=== PATIENT | male | born 1955 | race Caucasian/White ===

== ENCOUNTER 2018-02-27 10:37 | Emergency (ER) | payer MEDICAID ==
--- NOTE | 2018-02-27 11:04 | Emergency Department Record ---
History of Present Illness - General Chief complaint: ENT Stated complaint: SINUS INFECTION Time Seen by Provider: 02/27/18 10:56 Source: Patient, RN notes reviewed Mode of Arrival: Ambulatory - History of Present Illness Initial comments: sinus congestin and recently finished cleocin for a tooth infection on the right side and now he is having congestion of the left side of infection. Onset/Timin -: Week(s) Location: Other Improves with: None Worsens with: None Associated Symptoms: Other - Related Data Previous Rx's Medication Instructions Recorded Doxycycline Monohydrate 100 mg PO BID #20 capsule 02/27/18 Allergies Allergy/AdvReac Type Severity Reaction Status Date / Time Penicillins Allergy Severe PT UNSURE Verified 02/27/18 10:41 OF REACTION cephalexin monohydrate AdvReac Intermediate rash Verified 02/27/18 10:41 [From [email or web address]] Travel Screening - Travel/Exposure Within Last 30 Days Have you traveled within the last 30 days?: No - Travel/Exposure Within Last Year Have you traveled outside the [place] in the last year?: No - Additonal Travel Details Have you been exposed to anyone with a communicable illness?: No - Travel Symptoms Symptom Screening: None Review of Systems Reviewed: No additional complaints except as noted below Constitutional: Reports: As per HPI. Denies: Chills, Fever, Malaise, Night sweats, Weakness, Weight change Eyes: Reports: As per HPI. Denies: Eye discharge, Eye pain, Photophobia, Vision change ENT: Reports: As per HPI, Congestion. Denies: Dental pain, Ear pain, Epistaxis , Hearing loss, Throat pain Respiratory: Reports: As per HPI. Denies: Cough, Dyspnea, Hemoptysis, Stridor, Wheezes Cardiovascular: Reports: As per HPI. Denies: Arrhythmia, Chest pain, Dyspnea on exertion, Edema, Murmurs, Orthopnea, Palpitations, Paroxysmal nocturnal dyspnea, Rheumatic Fever, Syncope Endocrine: Reports: As per HPI. Denies: Fatigue, Heat or cold intolerance, Polydipsia, Polyuria Gastrointestinal: Reports: As per HPI. Denies: Abdominal pain, Constipation, Diarrhea, Hematemesis, Hematochezia, Melena, Nausea, Vomiting Genitourinary: Reports: As per HPI. Denies: Dysuria, Frequency, Hematuria, Incontinence, Retention, Testicular pain, Testicular mass, Urgency Musculoskeletal: Reports: As per HPI. Denies: Arthralgia, Back pain, Gout, Joint swelling, Myalgia, Neck pain Skin: Reports: As per HPI. Denies: Bruising, Change in color, Change in hair/ nails, Lesions, Pruritus, Rash Neurological: Reports: As per HPI. Denies: Abnormal gait, Confusion, Headache, Numbness, Paresthesias, Seizure, Tingling, Tremors, Vertigo, Weakness Psychiatric: Reports: As per HPI. Denies: Anxiety, Auditory hallucinations, Depression, Homicidal thoughts, Suicidal thoughts, Visual hallucinations Hematological/Lymphatic: Reports: As per HPI. Denies: Anemia, Blood Clots, Easy bleeding, Easy bruising, Swollen glands Past Medical History - SOCIAL HISTORY Smoking Status: Never smoker Alcohol Use: None Drug Use: Rare Drug Use Detail:: Marijuana - RESPIRATORY Hx Respiratory Disorders: No - CARDIOVASCULAR Hx Cardio Disorders: No - NEURO Hx Neuro Disorders: No - GI Hx GI Disorders: No - Hx Genitourinary Disorders: No - ENDOCRINE Hx Endocrine Disorders: No - MUSCULOSKELETAL Hx Musculoskeletal Disorders: No - PSYCH Hx Psych Problems: No - HEMATOLOGY/ONCOLOGY Hx Hematology/Oncology Disorders: No Family Medical History Any Significant Family History?: Yes Hx Cancer: Father, Mother, Brother/Sister Physical Exam - General General Appearance: Alert, Oriented x3, Cooperative, No acute distress - Head Head exam: Normal inspection - Eye Eye exam: Normal appearance, PERRL Pupils: Normal accommodation - ENT ENT exam: Normal exam, Mucous membranes moist, Normal external ear exam, Normal orophraynx, TM's normal bilaterally Ear exam: Normal external inspection. negative: External canal tenderness Nasal Exam: Normal inspection. negative: Discharge, Sinus tenderness Mouth exam: Normal external inspection, Tongue normal Teeth exam: Normal inspection. negative: Dental caries Throat exam: Normal inspection. negative: Tonsillar erythema, Tonsillar exudate - Neck Neck exam: Normal inspection, Full ROM. negative: Tenderness - Respiratory Respiratory exam: Normal lung sounds bilaterally. negative: Respiratory distress - Cardiovascular Cardiovascular Exam: Regular rate, Normal rhythm, Normal heart sounds - GI/Abdominal GI/Abdominal exam: Soft, Normal bowel sounds. negative: Tenderness - Rectal Rectal exam: Deferred - exam: Deferred - Extremities Extremities exam: Normal inspection, Full ROM, Normal capillary refill. negative: Tenderness - Back Back exam: Reports: Normal inspection, Full ROM. Denies: Muscle spasm, Rash noted, Tenderness - Neurological Neurological exam: Alert, Normal gait, Oriented X3, Reflexes normal - Psychiatric Psychiatric exam: Normal affect, Normal mood - Skin Skin exam: Dry, Intact, Normal color, Warm Course Vital Signs 02/27/18 10:43 Temperature 98.1 F Pulse Rate 86 Respiratory 20 Rate Blood Pressure 157/95 Pulse Ox 98 Disposition Clinical Impression: Sinusitis Qualifiers: Sinusitis location: unspecified location Chronicity: acute Recurrence: non- recurrent Qualified Code(s): J01.90 - Acute sinusitis, unspecified Disposition: Home, Self-Care Condition: (1) Good Instructions: Sinusitis (ED) Additional Instructions: follow up with Dr Warren in 2-3 days Prescriptions: Doxycycline Monohydrate 100 mg PO BID #20 capsule Time of Disposition: 11:08 Quality - Quality Measures Quality Measures: N/A - Blood Pressure Screening Does Patient Have Any of the Following: No Blood Pressure Classification: Hypertensive Reading Systolic Measurement: 157 Diastolic Measurement: 95 Screening for High Blood Pressure: < First Hypertensive BP, F/U Documented > [ G8950] First Hypertensive Follow-up Interventions: Referral to alternative/primary care provider.
== END 2018-02-27 11:20 | disposition home or self-care (01) ==
LOC: ER 10:37
DX: J01.90 Acute sinusitis, unspecified (principal)
CPT/HCPCS: 99282

== ENCOUNTER 2019-03-17 11:32 | Emergency (ER) | payer MEDICAID ==
[2019-03-17] MEDS ORDERED: Diph,Pert(Acell),Tet Vac 0.5 ML SYR IM ONE (11:52)
[2019-03-17] MEDS ORDERED: DOXYCYCLINE HYCLATE 100 MG CAPSULE PO ONE (11:56)
--- NOTE | 2019-03-17 12:00 | Emergency Department Record ---
History of Present Illness - General Chief Complaint: Animal Bite Stated Complaint: DOG BITE LEFT HAND Time Seen by Provider: 03/17/19 11:44 Source: Patient Mode of Arrival: Ambulatory Limitations: No limitations - History of Present Illness Initial Comments: The patient is here due to being bit over the dorsal L hand by a stray dog last night. The patient states he was driving in [place] and got out of his truck and a white dog ran up and bit him. He thinks it was a Pit bull but is not sure what street he was on and if the dog had a collar on. He then went home and presented to the for treatment. Due to his low but not zero risk of rabies he was sent over to the ER for treatment. He did have a Doxycycline script called in but does need a Td shot. MD Complaint: Animal bite Onset/Timin -: Days(s) Animal: Dog Description: Unknown animal Mechanism: Bite Pain Description: Sharp Severity scale (1-10): 4 Context: Unprovoked Associated Symptoms: Bleeding Treatments Prior to Arrival: Wound dressing(s) - Related Data Patient Tetanus UTD (within 5 yrs): No Allergies Allergy/AdvReac Type Severity Reaction Status Date / Time Penicillins Allergy Severe PT UNSURE Verified 03/17/19 11:39 OF REACTION cephalexin monohydrate AdvReac Intermediate rash Verified 03/17/19 11:39 [From [employer]] Travel Screening - Travel/Exposure Within Last 30 Days Have you traveled within the last 30 days?: No Review of Systems Constitutional: Denies: Chills, Fever Past Medical History - SOCIAL HISTORY Smoking Status: Never smoker Alcohol Use: None Drug Use: None - RESPIRATORY Hx Respiratory Disorders: No - CARDIOVASCULAR Hx Cardio Disorders: No - NEURO Hx Neuro Disorders: No - GI Hx GI Disorders: No - Hx Genitourinary Disorders: No - ENDOCRINE Hx Endocrine Disorders: No - MUSCULOSKELETAL Hx Musculoskeletal Disorders: No - PSYCH Hx Psych Problems: No - HEMATOLOGY/ONCOLOGY Hx Hematology/Oncology Disorders: No Family Medical History Any Significant Family History?: Yes Hx Cancer: Father, Mother, Brother/Sister Physical Exam - General General Appearance: Alert, Oriented x3, Cooperative, No acute distress - Head Head exam: Atraumatic, Normocephalic, Normal inspection - Eye Eye exam: Normal appearance, PERRL - Extremities Extremities exam: Full ROM (There is full ROM to the L hand and fingers with no pain or limitations in ROM.), Normal capillary refill, Tenderness (There is a superficial bite wound to the dorsal L hand with very mild surrounding erythema and tenderness.). negative: Normal inspection Image of Hand: 1 - Dog bite area. 2 - Mild erythema present and tenderness. - Neurological Neurological exam: Alert. negative: Motor sensory deficit Course Vital Signs 03/17/19 11:36 Temperature 98.2 F Pulse Rate 103 H Respiratory 20 Rate Blood Pressure 157/82 Pulse Ox 99 - Reevaluation(s) Reevaluation #1: I did offer to use a needle to numb up the dog bite area to wash it out but the patient states that was done in the [facility] and is refusing that. 03/17/19 12:04 Reevaluation #2: I did discuss the options AT LENGTH with the patient regarding rabies shots. I did initially recommend contacting animal control to try to find the dog but the patient is unsure what street he was on and where in [place] he was. Due to that issue I then did discuss the low risk of rabies in domestic dogs but not NO risk so we do recommend doing the rabies shots. The patient after hearing it is multiple shots is now refusing the shots. He understands if he contracts rabies he will . He is going to think about it over the next few days and may return if he changes his mind. 03/17/19 12:16 Disposition Disposition: Discharge Clinical Impression: Dog bite of extremity Disposition: Home, Self-Care Condition: (2) Stable Instructions: Animal Bite (ED) Additional Instructions: Keep elevated and ice the hand. Please take the Doxycycline as directed. Please return to the ER for rabies shots if you change your mind. Return to the ER for any worsening hand swelling, any redness or pain. Forms: Patient Portal Access Time of Disposition: 12:15 Quality - Quality Measures Quality Measures: N/A - Blood Pressure Screening View Details: Yes Does Patient Have Any of the Following: No Blood Pressure Classification: Pre-Hypertensive BP Reading Systolic Measurement: 157 Diastolic Measurement: 82 Screening for High Blood Pressure: < Pre-Hypertensive BP, F/U Documented > [G8950] Pre-Hypertensive Follow-up Interventions: Referral to alternative/primary care provider.
== END 2019-03-17 12:25 | disposition home or self-care (01) ==
LOC: ER 11:32
DX: S61.452A Open bite of left hand, initial encounter (principal); W54.0XXA Bitten by dog, initial encounter; Y92.410 Unspecified street and highway as the place of occurrence of the external cause
CPT/HCPCS: 90715; 96372; 99283

== ENCOUNTER 2019-03-20 12:11 | Emergency (ER) | payer MEDICAID ==
[2019-03-20] MEDS ORDERED: RABIES VACCINE (RABAVERT) 2.5 IU VIAL IM ONE (12:35)
[2019-03-20] MEDS ORDERED: RABIES IMMUNE GLOBULIN 150 UNIT/ML IM ONE (12:35)
--- NOTE | 2019-03-20 12:43 | Emergency Department Record ---
History of Present Illness - General Chief Complaint: General Stated Complaint: WANTS RABIES SHOT Time Seen by Provider: 03/20/19 12:33 Source: Patient Mode of Arrival: Ambulatory Limitations: No limitations - History of Present Illness Initial comments: The patient is here for to start Rabies vaccinations. He had a dog bite 4 days ago and it was a stray dog. He did come in for treatment 3 days ago but did not want the shots. Now he did change his mind and would like the shots. The patient is taking Doxycycline and the hand wound is doing a lot better. There is no swelling, pain or redness. Onset/Timin -: Days(s) - Related Data Allergies Allergy/AdvReac Type Severity Reaction Status Date / Time Penicillins Allergy Severe PT UNSURE Verified 03/20/19 12:21 OF REACTION cephalexin monohydrate AdvReac Intermediate rash Verified 03/20/19 12:21 [From [employer]] Travel Screening - Travel/Exposure Within Last 30 Days Have you traveled within the last 30 days?: No Review of Systems Constitutional: Denies: Chills, Fever Past Medical History - SOCIAL HISTORY Smoking Status: Never smoker Alcohol Use: None Drug Use: None - RESPIRATORY Hx Respiratory Disorders: No - CARDIOVASCULAR Hx Cardio Disorders: No - NEURO Hx Neuro Disorders: No - GI Hx GI Disorders: No - Hx Genitourinary Disorders: No - ENDOCRINE Hx Endocrine Disorders: No - MUSCULOSKELETAL Hx Musculoskeletal Disorders: No - PSYCH Hx Psych Problems: No - HEMATOLOGY/ONCOLOGY Hx Hematology/Oncology Disorders: No Family Medical History Any Significant Family History?: No Hx Cancer: Father, Mother, Brother/Sister Physical Exam - General General Appearance: Alert, Oriented x3, Cooperative, No acute distress - Head Head exam: Atraumatic, Normocephalic - Eye Eye exam: Normal appearance, PERRL - Extremities Extremities exam: negative: Normal inspection (The L hand dorsal hand wound appears to be healing very well. There is no surrounding erythema or edema. The L hand has normal ROM and no pain with finger ROM.) - Neurological Neurological exam: Alert. negative: Motor sensory deficit Course Vital Signs 03/20/19 12:22 Temperature 97.8 F Pulse Rate 67 Respiratory 18 Rate Blood Pressure 144/80 Pulse Ox 98 - Reevaluation(s) Reevaluation #1: I did explain to the patient the need to continue his oral Abx's and to return on days 3, 7, and 14 for repeat vaccinations. 03/20/19 13:03 Disposition Disposition: Discharge Clinical Impression: Dog bite of extremity Disposition: Home, Self-Care Condition: (2) Stable Instructions: Animal Bite (ED) Additional Instructions: Please continue your antibiotic and please continue to keep the wound clean. Please return on Mar 23, 9, and 16 for repeat vaccinations. Forms: Patient Portal Access Time of Disposition: 13:04 Quality - Quality Measures Quality Measures: N/A - Blood Pressure Screening View Details: Yes Does Patient Have Any of the Following: No Blood Pressure Classification: Pre-Hypertensive BP Reading Systolic Measurement: 144 Diastolic Measurement: 80 Screening for High Blood Pressure: < Pre-Hypertensive BP, F/U Documented > [G8950] Pre-Hypertensive Follow-up Interventions: Referral to alternative/primary care provider.
== END 2019-03-20 13:37 | disposition home or self-care (01) ==
LOC: ER 12:11
DX: Z20.3 Contact with and (suspected) exposure to rabies (principal); S61.452A Open bite of left hand, initial encounter; W54.0XXA Bitten by dog, initial encounter; Y92.410 Unspecified street and highway as the place of occurrence of the external cause
CPT/HCPCS: 90375; 90675; 96372; 99283

== ENCOUNTER 2019-03-23 12:24 | Emergency (ER) | payer MEDICAID ==
[2019-03-23] MEDS ORDERED: RABIES VACCINE (RABAVERT) 2.5 IU VIAL IM ONE (12:25)
--- NOTE | 2019-03-23 12:29 | Emergency Department Record ---
History of Present Illness - General Chief Complaint: Recheck - Other Stated Complaint: RABIES SHOT Time Seen by Provider: 03/23/19 12:25 Source: Patient Mode of arrival: Ambulatory Limitations: No limitations - History of Present Illness Initial Comments: The patient is here for his 2nd dose of the Rabies Vaccine. He was here 3 days ago and had the Immun. series started. The patient states the dog bite to the L hand is much better. There is no pain, drainage or any discomfort with ROM of the fingers. MD Complaint: Wound re-check Onset/Timin -: Days(s) - Related Data Allergies Allergy/AdvReac Type Severity Reaction Status Date / Time Penicillins Allergy Severe PT UNSURE Verified 03/20/19 12:21 OF REACTION cephalexin monohydrate AdvReac Intermediate rash Verified 03/20/19 12:21 [From [employer]] Review of Systems Constitutional: Denies: Chills, Fever Past Medical History - SOCIAL HISTORY Smoking Status: Never smoker Drug Use: None - RESPIRATORY Hx Respiratory Disorders: No - CARDIOVASCULAR Hx Cardio Disorders: No - NEURO Hx Neuro Disorders: No - GI Hx GI Disorders: No - Hx Genitourinary Disorders: No - ENDOCRINE Hx Endocrine Disorders: No - MUSCULOSKELETAL Hx Musculoskeletal Disorders: No - PSYCH Hx Psych Problems: No - HEMATOLOGY/ONCOLOGY Hx Hematology/Oncology Disorders: No Family Medical History Hx Cancer: Father, Mother, Brother/Sister Physical Exam - General General Appearance: Alert, Oriented x3, Cooperative, No acute distress - Head Head exam: Atraumatic - Eye Eye exam: Normal appearance - Extremities Extremities exam: negative: Normal inspection (There is a healing superficial dog bite wound to the dorsal L hand. There is no surrounding erythema, warmth or tenderness. The patient has normal ROM of the L hand and fingers with no pain. ) - Neurological Neurological exam: Alert. negative: Motor sensory deficit Course - Reevaluation(s) Reevaluation #1: I again did discuss the need to keep the hand clean and dressed with Abx ointment untill fully healed. He is to return to the ER in 4 more days for his 3rd dose. 03/23/19 12:31 Disposition Disposition: Discharge Clinical Impression: Dog bite of extremity Disposition: Home, Self-Care Condition: (2) Stable Instructions: Wound Infection (ED) Additional Instructions: Please continue the local wound care to the L hand and return next Wednesday for your 3rd vaccination. Forms: Patient Portal Access Time of Disposition: 12:32 Quality - Quality Measures Quality Measures: N/A - Blood Pressure Screening View Details: Yes Does Patient Have Any of the Following: No Blood Pressure Classification: Pre-Hypertensive BP Reading Systolic Measurement: 138 Diastolic Measurement: 74 Screening for High Blood Pressure: < Pre-Hypertensive BP, F/U Documented > [G8950] Pre-Hypertensive Follow-up Interventions: Referral to alternative/primary care provider.
== END 2019-03-23 12:58 | disposition home or self-care (01) ==
LOC: ER 12:24
DX: Z20.3 Contact with and (suspected) exposure to rabies (principal)
CPT/HCPCS: 90675; 96372; 99282; 99283

== ENCOUNTER 2019-03-27 11:55 | Emergency (ER) | payer MEDICAID ==
[2019-03-27] MEDS ORDERED: RABIES VACCINE (RABAVERT) 2.5 IU VIAL IM ONE (11:58)
--- NOTE | 2019-03-27 12:07 | Emergency Department Record ---
History of Present Illness - General Chief Complaint: General Stated Complaint: RABIES VACCINE Time Seen by Provider: 03/27/19 11:58 Source: Patient Mode of Arrival: Ambulatory Limitations: No limitations - History of Present Illness Initial comments: The patient is here due to needing to receive his 3rd dose of Rabies vaccine. He denies any problems and states the hand wound is healing up. Onset/Timin -: Week(s) - Related Data Allergies Allergy/AdvReac Type Severity Reaction Status Date / Time Penicillins Allergy Severe PT UNSURE Verified 03/27/19 12:03 OF REACTION cephalexin monohydrate AdvReac Intermediate rash Verified 03/27/19 12:03 [From [employer]] Review of Systems Constitutional: Denies: Chills, Fever Past Medical History - SOCIAL HISTORY Smoking Status: Never smoker Alcohol Use: None Drug Use: None - RESPIRATORY Hx Respiratory Disorders: No - CARDIOVASCULAR Hx Cardio Disorders: No - NEURO Hx Neuro Disorders: No - GI Hx GI Disorders: No - Hx Genitourinary Disorders: No - ENDOCRINE Hx Endocrine Disorders: No - MUSCULOSKELETAL Hx Musculoskeletal Disorders: No - PSYCH Hx Psych Problems: No - HEMATOLOGY/ONCOLOGY Hx Hematology/Oncology Disorders: No Family Medical History Any Significant Family History?: No Hx Cancer: Father, Mother, Brother/Sister Physical Exam - General General Appearance: Alert, Oriented x3, Cooperative, No acute distress - Head Head exam: Atraumatic, Normocephalic - Eye Eye exam: Normal appearance, PERRL - Neck Neck exam: Normal inspection, Full ROM. negative: Tenderness - Extremities Extremities exam: Full ROM, Normal capillary refill. negative: Normal inspection (There is a dorsal hand wound that is healing up. There is no surrounding tenderness or erythema.), Joint swelling, Tenderness - Neurological Neurological exam: Alert. negative: Motor sensory deficit Disposition Disposition: Discharge Clinical Impression: History of rabies vaccination Disposition: Home, Self-Care Condition: (2) Stable Instructions: Rabies Vaccine (ED) Additional Instructions: Please continue to keep the hand clean and return to the ER in 1 week for your last dose of Rabies vaccine. Forms: Patient Portal Access Time of Disposition: 12:07 Quality - Quality Measures Quality Measures: N/A - Blood Pressure Screening View Details: Yes Does Patient Have Any of the Following: No Blood Pressure Classification: Pre-Hypertensive BP Reading Systolic Measurement: 130 Diastolic Measurement: 78 Screening for High Blood Pressure: < Pre-Hypertensive BP, F/U Documented > [G8950] Pre-Hypertensive Follow-up Interventions: Referral to alternative/primary care provider.
== END 2019-03-27 12:20 | disposition home or self-care (01) ==
LOC: ER 11:55
DX: Z20.3 Contact with and (suspected) exposure to rabies (principal)
CPT/HCPCS: 90675; 96372; 99282

== ENCOUNTER 2019-04-03 12:30 | Emergency (ER) | payer MEDICAID ==
[2019-04-03] MEDS ORDERED: RABIES VACCINE (RABAVERT) 2.5 IU VIAL IM ONE (12:42)
--- NOTE | 2019-04-03 12:55 | Emergency Department Record ---
History of Present Illness - General Chief Complaint: General Stated Complaint: LAST RABIES SHOT Time Seen by Provider: 04/03/19 12:50 Source: Patient Mode of arrival: Ambulatory Limitations: No limitations - History of Present Illness Initial Comments: pt here for last rabies shot from dog bite Complaint: Other Onset/Timin -: Week(s) Initial Visit For: Animal bite Returns Today for: Rabies shot Symptoms Since Prior Visit: No new symptoms - Related Data Home Medications Medication Instructions Recorded Confirmed Last Taken No Home Med [NO HOME MEDS] 04/03/19 04/03/19 Unknown Allergies Allergy/AdvReac Type Severity Reaction Status Date / Time Penicillins Allergy Severe PT UNSURE Verified 04/03/19 12:38 OF REACTION cephalexin monohydrate AdvReac Intermediate rash Verified 04/03/19 12:38 [From Keflex] Travel Screening - Travel/Exposure Within Last 30 Days Have you traveled within the last 30 days?: No Review of Systems Reviewed: No additional complaints except as noted below Constitutional: Reports: As per HPI. Denies: Chills, Fever, Malaise, Night sweats, Weakness, Weight change Eyes: Reports: As per HPI. Denies: Eye discharge, Eye pain, Photophobia, Vision change ENT: Reports: As per HPI. Denies: Congestion, Dental pain, Ear pain, Epistaxis, Hearing loss, Throat pain Respiratory: Reports: As per HPI. Denies: Cough, Dyspnea, Hemoptysis, Stridor, Wheezes Cardiovascular: Reports: As per HPI. Denies: Arrhythmia, Chest pain, Dyspnea on exertion, Edema, Murmurs, Orthopnea, Palpitations, Paroxysmal nocturnal dyspnea, Rheumatic Fever, Syncope Endocrine: Reports: As per HPI. Denies: Fatigue, Heat or cold intolerance, Polydipsia, Polyuria Gastrointestinal: Reports: As per HPI. Denies: Abdominal pain, Constipation, Diarrhea, Hematemesis, Hematochezia, Melena, Nausea, Vomiting Genitourinary: Reports: As per HPI. Denies: Dysuria, Frequency, Hematuria, Incontinence, Retention, Testicular pain, Testicular mass, Urgency Musculoskeletal: Reports: As per HPI. Denies: Arthralgia, Back pain, Gout, Joint swelling, Myalgia, Neck pain Skin: Reports: As per HPI. Denies: Bruising, Change in color, Change in hair/nails, Lesions, Pruritus, Rash Neurological: Reports: As per HPI. Denies: Abnormal gait, Confusion, Headache, Numbness, Paresthesias, Seizure, Tingling, Tremors, Vertigo, Weakness Psychiatric: Reports: As per HPI. Denies: Anxiety, Auditory hallucinations, Depression, Homicidal thoughts, Suicidal thoughts, Visual hallucinations Hematological/Lymphatic: Reports: As per HPI. Denies: Anemia, Blood Clots, Easy bleeding, Easy bruising, Swollen glands Past Medical History - SOCIAL HISTORY Smoking Status: Never smoker - RESPIRATORY Hx Respiratory Disorders: No - CARDIOVASCULAR Hx Cardio Disorders: No - NEURO Hx Neuro Disorders: No - GI Hx GI Disorders: No - Hx Genitourinary Disorders: No - ENDOCRINE Hx Endocrine Disorders: No - MUSCULOSKELETAL Hx Musculoskeletal Disorders: No - PSYCH Hx Psych Problems: No - HEMATOLOGY/ONCOLOGY Hx Hematology/Oncology Disorders: No Family Medical History Any Significant Family History?: No Hx Cancer: Father, Mother, Brother/Sister Physical Exam - General General Appearance: Alert, Oriented x3, Cooperative, No acute distress - Head Head exam: Normal inspection - Eye Eye exam: Normal appearance, PERRL, EOMI Pupils: Normal accommodation - ENT ENT exam: Normal exam, Mucous membranes moist, Normal external ear exam, Normal orophraynx Ear exam: Normal external inspection. negative: External canal tenderness Nasal Exam: Normal inspection. negative: Discharge, Sinus tenderness Mouth exam: Normal external inspection, Tongue normal Teeth exam: Normal inspection. negative: Dental caries Throat exam: Normal inspection. negative: Tonsillar erythema, Tonsillar exudate - Neck Neck exam: Normal inspection, Full ROM. negative: Tenderness - Respiratory Respiratory exam: negative: Respiratory distress - GI/Abdominal GI/Abdominal exam: Soft, Normal bowel sounds. negative: Tenderness - Rectal Rectal exam: Deferred - exam: Deferred - Extremities Extremities exam: Normal inspection, Full ROM, Normal capillary refill. negative: Tenderness - Back Back exam: Reports: Normal inspection, Full ROM. Denies: Muscle spasm, Rash noted, Tenderness - Neurological Neurological exam: Alert, CN II-XII intact, Normal gait, Oriented X3 - Psychiatric Psychiatric exam: Normal affect, Normal mood - Skin Skin exam: Dry, Intact, Normal color, Warm Course Vital Signs 04/03/19 12:36 Pulse Rate 82 Respiratory 20 Rate Blood Pressure 140/94 Pulse Ox 99 Disposition Disposition: Discharge Clinical Impression: Rabies contact, History of rabies vaccination Condition: (1) Good Instructions: Rabies Vaccine (ED) Additional Instructions: follow up with family doctor. return sooner if worse Quality - Quality Measures Quality Measures: N/A - Blood Pressure Screening Does Patient Have Any of the Following: No Blood Pressure Classification: Hypertensive Reading Systolic Measurement: 140 Diastolic Measurement: 94 Screening for High Blood Pressure: < First Hypertensive BP, F/U Documented > [[id number]] First Hypertensive Follow-up Interventions: Follow-up with rescreen GT 1 day and LT 4 weeks.
== END 2019-04-03 13:16 | disposition home or self-care (01) ==
LOC: ER 12:30
DX: Z20.3 Contact with and (suspected) exposure to rabies (principal)
CPT/HCPCS: 90675; 96372; 99282